=== PATIENT | male | born 1995 | race Caucasian/White ===

== ENCOUNTER 2018-01-03 21:13 | Emergency (ER) | payer SELFPAY ==
[~2018-01-03] VITALS: Ht 180.3 cm; Wt 113.4 kg
[~2018-01-03 21:13] MED LIST: ALBU8.5H6 INH; AMOX1TAB61 PO; CLOP75TA PO; DIPH25CA58 PO; OXYC-328 PO
[2018-01-03] MEDS ORDERED: cefTRIAXone IM 1 GM VIAL IM ONE (21:45)
[2018-01-03] MEDS ORDERED: HYDROcodone/APAP 5/325MG 1 TAB TABLET PO ONE (21:45)
[2018-01-03] MEDS ORDERED: LIDOCAINE 1% PF 2 ML VIAL. INJ ONE (21:45)
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
[2018-01-03 22:30] VITALS: BP 113/64
[2018-01-03] MEDS ORDERED: MUPI15CR TP (23:09)
[2018-01-03] MEDS ORDERED: CLIN150C14 PO (23:09)
== END 2018-01-03 23:15 | disposition home or self-care (01) ==
LOC: ER 21:13
DX: L03.115 Cellulitis of right lower limb (principal); J45.909 Unspecified asthma, uncomplicated
CPT/HCPCS: 96372; 99284; J0696

== ENCOUNTER 2020-01-16 08:47 | Emergency (ER) | payer SELFPAY ==
[~2020-01-16] VITALS: Ht 180.3 cm; Wt 118.0 kg
[~2020-01-16 08:47] MED LIST changes: +CLIN150C14 PO; +MUPI15CR TP; -OXYC-328 PO; +OXYC1TAB22 PO
[2020-01-16 09:00] VITALS: BP 151/88
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
[2020-01-16] MEDS ORDERED: KETOROLAC 60 MG/2 ML VIAL. IM ONE (09:45)
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
[2020-01-16] MEDS ORDERED: NAPR-683 PO (10:56)
== END 2020-01-16 10:40 | disposition home or self-care (01) ==
LOC: ER 08:47
DX: M79.661 Pain in right lower leg (principal); G89.29 Other chronic pain; J45.909 Unspecified asthma, uncomplicated; F17.200 Nicotine dependence, unspecified, uncomplicated
CPT/HCPCS: 93971; 96372; 99284; J1885